=== PATIENT | male | born 1985 | race American Indian/Alaskan Native ===

== ENCOUNTER 2019-03-23 04:33 | Emergency (ER) | payer BC ==
[2019-03-23] MEDS ORDERED: BOOSTRIX IM ONE (08:44)
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
[2019-03-23 09:29] VITALS: BP 120/72
== END 2019-03-23 09:29 | disposition home or self-care (01) ==
LOC: ED 04:33
DX: S51.812A Laceration without foreign body of left forearm, initial encounter (principal); F17.200 Nicotine dependence, unspecified, uncomplicated; F12.10 Cannabis abuse, uncomplicated; Z79.899 Other long term (current) drug therapy; Z88.8 Allergy status to other drugs, medicaments and biological substances; W45.8XXA Other foreign body or object entering through skin, initial encounter; Y93.89 Activity, other specified; Y92.89 Other specified places as the place of occurrence of the external cause; Y99.8 Other external cause status
CPT/HCPCS: 90471; 90715; 99285

== ENCOUNTER 2019-04-11 17:45 | Emergency (ER) | payer BC ==
[2019-04-11 18:15] VITALS: BP 119/73
--- NOTE | 2019-04-11 18:21 | Emergency Department Report ---
Suture/Staple Removal - HPI Chief Complaint: Laceration/Recheck/Suture Stated Complaint: REMOVAL OF SUTURES Time Seen by Provider: 04/11/19 18:13 When Sutures or [place] Placed: >14 Days Ago Wound Location: left distal forearm ED Review of Systems ROS: Stated complaint: REMOVAL OF SUTURES Other details as noted in HPI Constitutional: denies: chills, fever Respiratory: denies: cough, shortness of breath, wheezing Cardiovascular: denies: chest pain, palpitations Skin: lesions (sutures x 3 to left distal forearm healed laceration). denies: rash Neurological: denies: headache, weakness, paresthesias Psychiatric: denies: anxiety, depression ED Past Medical Hx - Past Medical History Previous Medical History?: No - Surgical History Past Surgical History?: No - Social History Smoking Status: Current Every Day Smoker Substance Use Type: Alcohol, Marijuana - Medications Home Medications: Home Medications Medication Instructions Recorded Confirmed Last Taken Type Albuterol Sulfate [Proair 90 mcg IH Q4HR PRN #2 aer.[email or web address] 04/05/16 Unknown Rx Respiclick] Benzonatate [Tessalon Perles] 100 mg PO Q8HR PRN #30 capsule 04/05/16 Unknown Rx cephALEXin [Keflex] 500 mg PO QID 7 Days #56 capsule 03/23/19 Unknown Rx Suture Removal Exam - Exam General: Vital signs noted. No distress. Alert and acting appropriately. Wound: No Pathologic Erythema, No Tenderness, No Drainage, No Pus, No Wound Dehiscence Other Systems: All other systems reviewed and are unremarkable. ED Recheck MDM - Differential Diagnosis Suture/Staple Removal - Medical Decision Making This patient was seen by this provider. Vitals are stable and patient in no acute distress. Sutures x 3 to left distal posterior forearm x 18 days. Patient states he was busy and unable to followup as told. He denies new symptoms. Sutures removed with wire forceps. No drainage, tenderness, swelling, or erythema, and wound edges approximated. Apply vitamin E or mederma to wound for scarring. Instructed to follow up with PCP. Patient discharged home stable. Critical care attestation.: If time is entered above; I have spent that time in minutes in the direct care of this critically ill patient, excluding procedure time. ED Disposition Clinical Impression: Encounter for removal of sutures Disposition: TO HOME OR SELFCARE Is pt being admited?: No Condition: Stable Instructions: Suture Removal (ED) Additional Instructions: Apply mederma or vitamin E to wound to improve scaring. Follow up with a primary care doctor. Referrals: [facility] [Outside] - 3-5 Days [facility] [Outside] - 3-5 Days [facility] [Outside] - 3-5 Days Time of Disposition: 18:47
== END 2019-04-11 18:52 | disposition home or self-care (01) ==
LOC: ED 17:45
DX: S51.812D Laceration without foreign body of left forearm, subsequent encounter (principal); F17.200 Nicotine dependence, unspecified, uncomplicated; F12.10 Cannabis abuse, uncomplicated; Z79.899 Other long term (current) drug therapy; Z88.8 Allergy status to other drugs, medicaments and biological substances; X58.XXXD Exposure to other specified factors, subsequent encounter

== ENCOUNTER 2021-02-02 19:47 | Emergency (ER) | payer SELFPAY ==
[2021-02-02] MEDS ORDERED: ACETAMINOPHEN 500 MG TAB PO ONE (21:47)
[2021-02-02 21:48] VITALS: BP 124/75
== END 2021-02-03 04:15 | disposition home or self-care (01) ==
LOC: ED 19:47
DX: Z00.8 Encounter for other general examination (principal); Z53.21 Procedure and treatment not carried out due to patient leaving prior to being seen by health care provider